=== PATIENT | female | born 1985 | race Two or more races ===

== ENCOUNTER 2016-11-30 00:52 | Emergency (ER) | payer BC, OTHER ==
[~2016-11-30] VITALS: Ht 162.6 cm; Wt 68.0 kg
[2016-11-30] MEDS ORDERED: MORPHINE SULFATE INJ 4 MG/ML DISP.SYRIN ONE (01:26)
[2016-11-30] MEDS ORDERED: ONDANSETRON HCL/PF 4 MG/2 ML VIAL ONE (01:26)
[2016-11-30] MEDS ORDERED: IV NS 0.9% 1,000 ML ONE (01:26)
[2016-11-30] MEDS ORDERED: IV SET PRIMARY 1 EA INFUS.SET MC ONE ×2 (01:26→03:21)
[2016-11-30] MEDS ORDERED: MORPHINE SULFATE INJ 2 MG/ML DISP.SYRIN IV ONE (01:30)
[2016-11-30] MEDS ORDERED: IV NS 0.9% 1,000 ML BAG IV ONE (01:30)
[2016-11-30] MEDS ORDERED: ONDANSETRON HCL/PF 4 MG/2 ML VIAL IVP ONE (01:30)
[2016-11-30 01:45] LABS: BASOPHILS % (AUTO) 0.2 % (0.0-2.0); DIFF TOTAL % 100 %; EOSINOPHILS # (AUTO) 0.1 /CMM (0.0-0.7); EOSINOPHILS % (AUTO) 0.5 % (0.0-6.0); HEMATOCRIT 39 % (33-45); HEMOGLOBIN 13.2 g/dL (11.5-14.8); LYMPHOCYTES # (AUTO) 1.1 /CMM (0.8-4.8); LYMPHOCYTES % (AUTO) 9.9 % (20.0-44.0); MEAN CORPUSCULAR HEMOGLOBIN 29 PG (26.0-33.0); MEAN CORPUSCULAR HGB CONC 33 g/dl (31.0-36.0); MEAN CORPUSCULAR VOLUME 87 fL (82-100); MONOCYTES # (AUTO) 0.5 /CMM (0.1-1.30); MONOCYTES % (AUTO) 4.4 % (2.0-12.0); NEUTROPHILS # (AUTO) 9.4 /CMM (1.8-8.9); PLATELET COUNT (AUTO) 167 /CMM (150-450); RED BLOOD CELL COUNT(AUTO) 4.53 MIL/uL (4.0-5.2)
[2016-11-30 01:58] LABS: ALBUMIN 3.6 g/dL (3.4-5.0); BILIRUBIN,DIRECT 0.1 mg/dL (0.0-0.2); BILIRUBIN,TOTAL 0.4 mg/dL (0.2-1.0); CALCIUM, SERUM 8.4 mg/dL (8.5-10.1); INDIRECT BILIRUBIN 0.3 mg/dL (0.0-1.1); POTASSIUM 3.8 mmol/L (3.5-5.1); TOTAL PROTEIN, SERUM 7.1 g/dL (6.4-8.2)
[2016-11-30 02:39] LABS: KETONES,URINE NEGATIVE (NEGATIVE); LEUKOCYTE ESTERASE ,URINE 2+ (NEGATIVE)
[2016-11-30 02:42] LABS: ADD UA MICROSCOPIC YES
[2016-11-30 02:43] LABS: PREGNANCY TEST URINE QUAL NEGATIVE (NEGATIVE)
[2016-11-30 02:46] LABS: ADD URINE CULTURE YES; WBC,URINE 51-80 /HPF (0-3)
[2016-11-30] MEDS ORDERED: CEFTRIAXONE 1GM BAG (ER ONLY) 50 ML IV ONE ×2 (03:00→03:21)
[2016-11-30 03:58] VITALS: BP 112/57
== END 2016-11-30 03:58 | disposition home or self-care (01) ==
LOC: ER 00:54
DX: N12 Tubulo-interstitial nephritis, not specified as acute or chronic (principal)
CPT/HCPCS: 36415; 80048; 80076; 81001; 83605; 83690; 84703 ×2; 85025; 87040 ×2; 87077 ×2; 87086; 87186 ×2; 96361; 96365; 96375; 99284; A4606; J0696; J2270; J2405; J7030; Z7610; 81000-TC